=== PATIENT | male | born 1935 | race African-American/Black ===

== ENCOUNTER 2016-07-11 08:00 | Inpatient (IN) | payer OTHER, BC ==
[2016-07-09 13:08] LABS: BASOPHIL % 0.6 % (0-2); PLATELET COUNT 214 x10^3mcL (130-400)
[2016-07-09 13:10] LABS: RED CELL DISTRIBUTION WIDTH 15.6 % (11.5-14.5)
[2016-07-09 13:11] LABS: ALBUMIN 3.7 g/dL (3.4-5.0); ALKALINE PHOSPHATASE 77 U/L (46-116); ALT/SGPT 21 U/L (16-63); AST/SGOT 16 U/L (15-37); BILIRUBIN TOTAL 0.44 mg/dL (0.20-1.00); CALCIUM 8.7 mg/dL (8.5-10.1); CARBON DIOXIDE 33.7 mmol/L (21-32); CHLORIDE SERUM 108 mmol/L (98-107); CREATININE SERUM 0.7 mg/dL (0.7-1.3); GLUCOSE SERUM 115 mg/dL (74-106); POTASSIUM SERUM 4.4 mmol/L (3.5-5.1); SODIUM SERUM 144 mmol/L (136-145); TOTAL PROTEIN, SERUM 7.5 g/dL (6.4-8.2)
[~2016-07-11] VITALS: Ht 188 cm; Wt 88.0 kg
[2016-07-11 08:31] VITALS: BP 129/77
--- NOTE | 2016-07-11 08:55 | NUR ---
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 18 GAUGE IN LEFT FOREARM. EKG STRIP OBTAINED
--- NOTE | 2016-07-11 09:14 | NUR ---
0910 PATIENT WITH [facility] RN AND TECH AT BEDSIDE. ENDORSEMENT GIVEN AT THIS TIME. PATIENT MADE COMFORTABLE. NEEDS AND CONCERNS ADDRESSED. PATIENT WITH DAUGHTER AT BEDSIDE. PATIENT TRANSPORTED TO [facility] AT THIS TIME VIA GURNEY AND ACCOMPANIED BY [facility] RN AND TECH. ALL NEEDS MET.
[2016-07-11 12:40] VITALS: BP 166/89
--- NOTE | 2016-07-11 12:40 | NUR ---
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 PT TRANSPORTED VIA BED. VITAL SIGNS STABLE. PT ABLE TO LET NEEDS KNOWN. TELE #20 APPLIED SR HR:60 PACED. LEFT ARM ON SLING POST PACEMAKER BATTERY REPLACEMENT. DRESSING TO PROCEDURAL SITE CDI. +2 PULSES TO ALL EXTREMITIES. EFFORTLESS BREATHING ON ROOM AIR. DENIES ABD PAIN, BOWEL SOUNDS PRESENT TO ALL QUADRANTS, NOM DISCOMFORT WHEN VOIDING. PT AMBULATORY. SKIN INTACT. IV SITE TO LFA #18. BED IN LOWEST POSITION, CALL LIGHT WITHIN REACH. WILL CONTINUE TO MONITOR.
[2016-07-11 16:27] VITALS: BP 166/89
--- NOTE | 2016-07-11 17:10 | NUR ---
PT IN BED. NO DISTRESS NOTED. PT DENIES CHEST PAIN, SOB. CALL LIGHT WITHIN REACH.
[2016-07-11 17:12] LABS: T3 TOTAL 0.99 ng/mL
[2016-07-11 17:13] LABS: FREE T4 1.2 ng/dL (0.76-1.46); FREE THYROXINE INDEX 2.9 ug/dL (1.4-4.5); T4(THYROXINE) 7.8 ug/dL (4.7-13.3)
[2016-07-11 17:14] LABS: CHOLESTEROL/HDL RATIO 2.3
[2016-07-11 18:08] VITALS: BP 117/73
--- NOTE | 2016-07-11 20:00 | NUR ---
AWAKE AND VERBALLY RESPONSIVE. ABLE TO MAKE NEEDS KNOW, SKIN WARM AND DRY TO TOUCH. RESPIRATION EVEN AND UNLABORED. DENIES ANY CHEST PAIN/DISCOMFORT. PLACED CALL LIGHT WITHIN REACH AND INSTRUCTED TO CALL FOR ANY ASSISTANCE NEEDED AND VERBALIZED UNDERSTANDING.
[2016-07-11 21:18] VITALS: BP 127/70
--- NOTE | 2016-07-12 00:01 | NUR ---
EYES CLSOED, NO FACIAL GRIMACING NOTED. RESPIRATION EVEN AND UNLABORED. NO S/S OF PAIN/DISCOMFORT. WILL CONTINUE TO MONITOR.
[2016-07-12 06:17] LABS: BASOPHIL % 0.6 % (0-2); PLATELET COUNT 177 x10^3mcL (130-400)
[2016-07-12 06:24] LABS: CALCIUM 8.2 mg/dL (8.5-10.1); CARBON DIOXIDE 27.9 mmol/L (21-32); CHLORIDE SERUM 107 mmol/L (98-107); CREATININE SERUM 0.7 mg/dL (0.7-1.3); GLUCOSE SERUM 92 mg/dL (74-106); MAGNESIUM 2.1 mg/dL (1.8-2.4); PHOSPHOROUS 4.5 mg/dL (2.5-4.9); POTASSIUM SERUM 4.1 mmol/L (3.5-5.1); SODIUM SERUM 144 mmol/L (136-145)
[2016-07-12 06:46] VITALS: BP 141/89
[2016-07-12 07:01] LABS: RED CELL DISTRIBUTION WIDTH 15.2 % (11.5-14.5)
--- NOTE | 2016-07-12 07:50 | NUR ---
AWAKE,ALERT AND ORIENTED. DENIES ANY PAIN AT THIS TIME. S/P PACEMAKER BATTERY REPLACEMENT 07/11/16.W/ LEFT CHEST DRESSING CDI CONT. W/ LEFT ARM SLING ON. AMBULATORY. VOIDING WELL IN THE BATHROOM.CALL LIGHT W/ IN REACH.WILL CONT. PLN OF CARE.
[2016-07-12 09:13] VITALS: BP 116/71
[2016-07-12 12:37] VITALS: BP 146/90
--- NOTE | 2016-07-12 13:21 | NUR ---
PER DR CROCKETT, OK TO DC HOME, NO NEED TO INTERROGATE PACEMAKER.
[2016-07-12] MEDS ORDERED: NOR5 PO (13:39)
[2016-07-12] MEDS ORDERED: KEFLEX250 M1 PO (13:40)
[2016-07-12 13:52] VITALS: BP 146/90
--- NOTE | 2016-07-12 14:50 | NUR ---
PT. WENT HOME W/ STABLE CONDITION AMBULATORY ACC. W/ HIS FAMILY DISCHARGED INSTRUCTIONS AND PRESCRIPTION GIVEN AND DISCUSSED TO PT. AND VERBALIZED UNDERSTANDING OF INSTRUCTION GIVEN.NO ACUTE DISTRESS NOTED. ESCORTED BY RITU IN THE LOBBY.
== END 2016-07-12 15:07 | disposition home or self-care (01) | DRG 259 ==
LOC: DS 08:00 → OR 10:00 → DS 10:00 → DU 12:20 → DS 12:21 → MU 13:12 → DU 13:12
PROVIDERS: Internal Medicine Cardiovascular Disease; ADMIT Family Medicine
PROC: 0JH606Z Insertion of Pacemaker, Dual Chamber into Chest Subcutaneous Tissue and Fascia, Open Approach (ICD-10-PCS; principal; 2016-07-11 10:00)
PROC: 0JPT0PZ Removal of Cardiac Rhythm Related Device from Trunk Subcutaneous Tissue and Fascia, Open Approach (ICD-10-PCS; principal; 2016-07-11 10:00)
DX: Z45.010 Encounter for checking and testing of cardiac pacemaker pulse generator [battery] (principal); D68.69 Other thrombophilia; I49.5 Sick sinus syndrome; I10 Essential (primary) hypertension; I44.1 Atrioventricular block, second degree; E11.65 Type 2 diabetes mellitus with hyperglycemia; H40.9 Unspecified glaucoma; E89.0 Postprocedural hypothyroidism; E03.9 Hypothyroidism, unspecified; E87.8 Other disorders of electrolyte and fluid balance, not elsewhere classified; M19.90 Unspecified osteoarthritis, unspecified site; Z68.24 Body mass index [BMI] 24.0-24.9, adult; Z85.46 Personal history of malignant neoplasm of prostate
CPT/HCPCS: 33213; 82962; 83880; 84439; J0690; J2001; J2250; J3010; J3370; J3490; J7040; Q0092; Q0163; Q9967

== ENCOUNTER 2018-10-09 11:14 | Emergency (ER) | payer OTHER, BC ==
[~2018-10-09] VITALS: Ht 188 cm; Wt 82.6 kg
[~2018-10-09 11:14] MED LIST: KEFLEX250 M1 PO; NOR5 PO
[2018-10-09 11:17] VITALS: BP 102/76; Ht 188 cm; Wt 82.6 kg
== END 2018-10-09 12:59 | disposition home or self-care (01) ==
LOC: ED 11:14
DX: S30.861A Insect bite (nonvenomous) of abdominal wall, initial encounter (principal); S40.261A Insect bite (nonvenomous) of right shoulder, initial encounter; I10 Essential (primary) hypertension; W57.XXXA Bitten or stung by nonvenomous insect and other nonvenomous arthropods, initial encounter; Y93.89 Activity, other specified; Y92.89 Other specified places as the place of occurrence of the external cause; Y99.8 Other external cause status